=== PATIENT | female | born 2000 | race Caucasian/White ===

== ENCOUNTER 2021-07-17 00:25 | Emergency (ER) | payer MEDICAID ==
[~2021-07-17] VITALS: Ht 165.1 cm; Wt 59.0 kg
[2021-07-17 00:25] VITALS: BP 108/68
--- NOTE | 2021-07-17 00:27 | NUR ---
PT AMBERLY ALS. TAKEN TO BED 4
--- NOTE | 2021-07-17 00:27 | NUR ---
Dr. Vasquez examining patient.
--- NOTE | 2021-07-17 00:35 | NUR ---
BS TAKEN 106. MADE AWARE
--- NOTE | 2021-07-17 00:35 | NUR ---
PATIENT HAS 18G LEFT AC IV PLACED PER ALS
--- NOTE | 2021-07-17 01:20 | NUR ---
18/F BIBA PICKED UP AT [facility]. PER FRIENDS, PATIENT TOOK 8-10 SHOTS. PATIENT IS RESPONSIVE TO VERBAL STIMULI. SKIN IS PINK, WARM AND DRY AT THIS TIME. LUNGS CLEAR BL; HR EVEN AND REGULAR; NO RR DISTRESS. PATIENT POSITIONED FOR COMFORT; HOB ELEVATED; BEDRAILS UP X2 FOR SAFETY; BED DOWN. PMHX UNKNOWN MEDS UNKNOWN ALLERGIES UNKNOWN
--- NOTE | 2021-07-17 01:21 | NUR ---
PATIENT FRIEND AT BEDSIDE
--- NOTE | 2021-07-17 02:30 | NUR ---
PATIENT SLEEPING, WITH FRIEND AT BEDSIDE. STAR SIDE RAILS UP, BED IN LOWEST POSITION AND LOCKED. ALL NEEDS MET.
--- NOTE | 2021-07-17 05:00 | NUR ---
PATIENT BEGGINING TO WAKE UP. HEART RATE 117-130, RR 20-26. MD AWARE. ORDERS CARRIED OUT
[2021-07-17] MEDS ORDERED: NACL 0.9% 1,000 ML IV ONE ×2 (05:25→09:40)
--- NOTE | 2021-07-17 05:30 | NUR ---
PATIENT HAD EPISODE OF VOMIT, AWARE
--- NOTE | 2021-07-17 05:33 | NUR ---
DR. DUKE AT BEDSIDE ASSESSING PATIENT
[2021-07-17] MEDS ORDERED: ONDANSETRON 4 MG/2 ML VIAL IVP ONE (05:45)
--- NOTE | 2021-07-17 06:03 | NUR ---
PATIENT SOAKED. CLEANED AND REPOSITIONED. BED IN LOWEST POSITION AND LOCKED. ALL NEEDS MET AT THIS TIME
--- NOTE | 2021-07-17 06:43 | NUR ---
PATIENT WAKING UP AT THIS TIME. REORIENTED TO STAY IN BED. BED IN LOWEST POSITION AND LOCKED AT THIS TIME. STAR SIDE RAILS UP FOR SAFETY.
--- NOTE | 2021-07-17 07:03 | NUR ---
IV removed by patient attempting to get out of bed. Applied folded 4x4 gauze and tape to stop bleeding.
--- NOTE | 2021-07-17 07:17 | NUR ---
REPORT GIVEN TO LEI BOB. TRANSFER OF CARE.
--- NOTE | 2021-07-17 07:30 | NUR ---
RECEIVED PT IN [facility] ALERT ORIENTED, DROWSY. ATTEMPTED TO AMBULATE UNSTEADY NEED ASSISTANCE TO BATHROOM AND BACK TO [facility]
[2021-07-17 10:56] VITALS: BP 116/80
--- NOTE | 2021-07-17 10:57 | NUR ---
Patient discharged with v/s stable. Written and verbal after care instructions given and explained. Patient verbalized understanding. Ambulatory with steady gait. All questions addressed prior to discharge. Advised to follow up with PMD.
== END 2021-07-17 10:57 | disposition home or self-care (01) ==
LOC: MED 00:25 → EDBD 00:25 → MED 10:57
DX: F10.129 Alcohol abuse with intoxication, unspecified (principal)
CPT/HCPCS: 82948; 96361; 96374; 99285; J2405; J7030